=== PATIENT | female | born 1990 | race Caucasian/White ===

== ENCOUNTER → 2019-01-16 | Outpatient (CLI) | payer OTHER, SELFPAY ==
[2019-01-16 09:03] VITALS: BMI 26.2
[2019-01-16 18:18] LABS: Chlamydia Trachomatis by PCR Negative (Negative); Neisserai gonorrhoeae by PCR Negative (Negative); Probe Check PASS; Sample Adequacy Control PASS; Specimen Processing Control PASS
[2019-01-19 12:42] LABS: HPV APTIMA, High Risk Negative (Negative)
== END | disposition home or self-care (01) ==
LOC: LABSPEC 13:05
PROVIDERS: Family Provider Family Medicine; PCP Family Medicine; Referring Provider Obstetrics & Gynecology; Visit Provider Obstetrics & Gynecology
DX: Z34.80 Encounter for supervision of other normal pregnancy, unspecified trimester (principal)
CPT/HCPCS: 87077; 87086; 87088; 87186; 87491; 87591; 87624; 88175; G0145

== ENCOUNTER → 2019-02-13 | Outpatient (CLI) | payer OTHER, SELFPAY ==
[2019-02-13 16:17] VITALS: BMI 26.2
[2019-02-13 17:14] LABS: Absolute Lymphocyte Count 2.48 X10^3/uL (0.83-4.51); Absolute Neutrophil Count 6.8 X10^3/uL (2.0-7.7); Basophil# 0.03 X10^3/uL; Basophil% 0.3 % (0-1); Eosinophil# 0.23 X10^3/uL; Eosinophils% 2.3 % (0-5); Hematocrit 36.1 % (37-47); Hemoglobin 12.2 g/dL (12.0-15.0); Lymphocyte # 2.48 X10^3/ul (4.0); Lymphocyte % 24.5 % (19-41); Mean Corp Hgb Conc 33.8 g/dL (32-36); Mean Corpuscular Hgb 30.9 pg (27.0-32.0); Mean Corpuscular Volume 91.4 fL (81-99); Mean Platelet Vol. 11.8 fl (6.2-12.0); Monocyte# 0.52 X10^3/uL; Monocyte% 5.1 % (0-10); NRBC Flagged by Analyzer 0 % (0-5); Neutrophil # 6.82 X10^3/uL (2.7-7.7); Neutrophil % 67.4 % (47-70); POSITIVE MORPHOLOGY YES; Platelet Count 219 K/mm3 (150-450); RBC Distribution Width CV 12.3 % (11.6-14.6); RBC Distribution Width SD 40.9 fl (35.1-43.9); Red Blood Count 3.95 M/mm3 (4.2-5.4); White Blood Count 10.1 K/mm3 (4.4-11.0)
[2019-02-13 17:26] LABS: Differential Indicated SCAN CRITERIA MET
[2019-02-13 17:52] LABS: Differential Comment SCANNED
[2019-02-13 18:36] LABS: HIV - WCH Non-Reactive (Nonreactive); Rubella IgG 33.6 IU/mL
[2019-02-16 01:38] LABS: Rapid Plasmin Reagin (RPR) NONREACTIVE (NONREACTIVE)
== END | disposition home or self-care (01) ==
LOC: LAB 16:46
PROVIDERS: Family Provider Family Medicine; PCP Family Medicine; Referring Provider Obstetrics & Gynecology; Visit Provider Obstetrics & Gynecology
DX: Z34.81 Encounter for supervision of other normal pregnancy, first trimester (principal)
CPT/HCPCS: 36415; 85025; 86592; 86703; 86762; 86850; 86900; 86901

== ENCOUNTER → 2019-06-01 14:42 | Outpatient (CLI) | payer OTHER, SELFPAY ==
[2019-06-01 14:34] VITALS: BMI 26.2
[2019-06-01 16:25] LABS: Absolute Lymphocyte Count 2.14 X10^3/uL (0.83-4.51); Absolute Neutrophil Count 9.2 X10^3/uL (2.0-7.7); Basophil# 0.02 X10^3/uL; Basophil% 0.2 % (0-1); Eosinophil# 0.07 X10^3/uL; Eosinophils% 0.6 % (0-5); Hematocrit 32.6 % (37-47); Hemoglobin 10.8 g/dL (12.0-15.0); Lymphocyte # 2.14 X10^3/ul (4.0); Lymphocyte % 17.7 % (19-41); Mean Corp Hgb Conc 33.1 g/dL (32-36); Mean Corpuscular Hgb 30.3 pg (27.0-32.0); Mean Corpuscular Volume 91.6 fL (81-99); Mean Platelet Vol. 12.5 fl (6.2-12.0); Monocyte# 0.64 X10^3/uL; Monocyte% 5.3 % (0-10); NRBC Flagged by Analyzer 0 % (0-5); Neutrophil # 9.16 X10^3/uL (2.7-7.7); Neutrophil % 75.5 % (47-70); Platelet Count 196 K/mm3 (150-450); RBC Distribution Width CV 12.6 % (11.6-14.6); Red Blood Count 3.56 M/mm3 (4.2-5.4); White Blood Count 12.1 K/mm3 (4.4-11.0)
[2019-06-01 16:48] LABS: Glucose Challenge Gest 1H 50g 115 mg/dL (70-140)
== END ==
PROVIDERS: Family Provider Family Medicine; PCP Family Medicine; Referring Provider Obstetrics & Gynecology; Visit Provider Obstetrics & Gynecology
DX: Z34.93 Encounter for supervision of normal pregnancy, unspecified, third trimester (principal); Z3A.28 28 weeks gestation of pregnancy
CPT/HCPCS: 36415; 82950; 85025; 86850; 86900; 86901

== ENCOUNTER → 2019-06-12 16:14 | Outpatient (CLI) | payer OTHER, SELFPAY ==
[2019-06-12 16:01] VITALS: BMI 26.2
[2019-06-13 08:58] LABS: Hepatitis B Surface Antigen Non-Reactive (Nonreactive)
== END ==
PROVIDERS: PCP Family Medicine; Referring Provider Obstetrics & Gynecology; Visit Provider Obstetrics & Gynecology
DX: Z34.90 Encounter for supervision of normal pregnancy, unspecified, unspecified trimester (principal)
CPT/HCPCS: 36415; 87340

== ENCOUNTER 2019-08-16 09:25 | Inpatient (IN) | payer OTHER, SELFPAY ==
[2019-06-01 14:34] VITALS: BMI 26.2
[2019-08-09 16:00] VITALS: BMI 31.0
[2019-08-16] VITALS (20 sets, daily range): BP systolic 99–112; BP diastolic 45–71; PULSE 51–80; RESP 16–18; TEMP 36.2–37.6; O2SAT 95–100; BMI 31.4
[2019-08-16] MEDS: Lactated Ringers 1,000 ML 999 ML IV (09:55)
[2019-08-16 10:14] LABS: Absolute Lymphocyte Count 1.74 X10^3/uL (0.83-4.51); Absolute Neutrophil Count 8.3 X10^3/uL (2.0-7.7); Basophil# 0.03 X10^3/uL; Basophil% 0.3 % (0-1); Eosinophil# 0.12 X10^3/uL; Eosinophils% 1.1 % (0-5); Hematocrit 34.1 % (37-47); Hemoglobin 11.4 g/dL (12.0-15.0); Lymphocyte # 1.74 X10^3/ul (4.0); Lymphocyte % 15.9 % (19-41); Mean Corp Hgb Conc 33.4 g/dL (32-36); Mean Corpuscular Volume 89.7 fL (81-99); Mean Platelet Vol. 12.8 fl (6.2-12.0); Monocyte# 0.63 X10^3/uL; Monocyte% 5.8 % (0-10); NRBC Flagged by Analyzer 0 % (0-5); Neutrophil # 8.33 X10^3/uL (2.7-7.7); Neutrophil % 76.2 % (47-70); Platelet Count 176 K/mm3 (150-450); RBC Distribution Width CV 13.5 % (11.6-14.6); RBC Distribution Width SD 44.4 fl (35.1-43.9); White Blood Count 10.9 K/mm3 (4.4-11.0)
[2019-08-16] MEDS: Sodium Citrate/Citric Acid 30 ML UDC PO (10:26)
[2019-08-16] MEDS: Oxytocin 30 units/NS 500 ml 30 UNITS/500 ML IV.SOLN 167 UNITS IV (11:40)
--- NOTE | 2019-08-16 11:42 | HP.PCM_ITS ---
- Problem List (1) Active labor at term Status: Acute (2) Rh negative status during Status: Acute Qualifiers: Comment: rhogam given at 28 wk, prn with bleeding (3) Positive GBS test Status: Acute Comment: pcn in labor (4) Status: Acute Qualifiers: Comment: Declines carrier. declines AFP. genetic low risk. Normal anatomy (5) Supervision of other normal Status: Acute Comment: PRR MILAGROS 08/24/19 boy lizzeth PC: Keo Spouse: Baltazar (6) H/O section Status: Acute Comment: 10/2016 CPD, plan RLTCS shedule 08/20 @ 730 History Date of Admission: 08/16/19 History of this : This is a 29 year-old, , at 38 weeks gestational age presents in active labor desires RLTCS.. Medical History: Medical History (Last Reviewed 08/09/19 @ 15:59 by Ivy Abel) No significant past medical history Surgical History: Surgical History (Last Reviewed 08/09/19 @ 15:59 by Ivy Abel) H/O section (Acute) Z98.891 10/2016 CPD, plan RLTCS shedule 08/20 @ 730 H/O wisdom tooth extraction K08.409 Allergies amoxicillin [From Augmentin] Allergy (Verified 08/09/19 16:00) Hives clavulanic acid [From Augmentin] Allergy (Verified 08/09/19 16:00) Hives Home Medications: Home Medications vitamin no.76-iron,carbonyl 29 mg iron-folic acid 1 mg tablet 1 tab PO DAILY 01/16/19 Smoking Status: Never smoker Alcohol: None Number of Fetus(es): 1 NST - FHR Rate Baby A Baseline: 140 Variability:: Moderate Accelerations:: 15 x 15 Decelerations:: None NST Reactive:: Yes FHR Category:: Category I Uterine Activity:: q 2-3 History Past Pregnancies: Past Pregnancies Pregancy History 2 Elective abortions Hx Para 1 Spontaneous abortions Hx # Term Pregnancies Ectopic pregnancies Hx # Pregnancies Multiple births # of living children 1 Past Pregnancies Del. Date Name GA/Weeks Outcome Route Bth Weight [facility] Keo 40 live - full term 8.3lbs [facility] [place] [facility] Goncalves Baltazar Delivery Date: 11/02/16 On 01/16/19 @ 09:15 Claudia Freitas Baby was turned unable to descend, pushed for 3 hours. Maternal fatigue. Labs: Mom's Problem List Problem Status Onset Code Active labor at term Acute Mom's Labs & Results 08/16/19 08/16/19 09:55 09:55 WBC 10.9 RBC 3.80 L Hgb 11.4 L Hct 34.1 L MCV 89.7 MCH 30.0 MCHC 33.4 RDW Std Deviation 44.4 H RDW Coeff of Nathaanel 13.5 Plt Count 176 MPV 12.8 H Immature Gran % (Auto) 0.700 Neut % (Auto) 76.2 H Lymph % (Auto) 15.9 L [place] % (Auto) 5.8 Eos % (Auto) 1.1 Baso % (Auto) 0.3 Absolute Neuts (auto) 8.3 H Absolute Lymphs (auto) 1.74 Nucleated RBC % 0 Blood Type A NEGATIVE Antibody Screen NEGATIVE Course Did the patient receive Yes care? Labs Blood Type: A RH: NEGATIVE RPR/VDRL/Syphilis Nonreactive Rubella status Immune HbSAg Negative Date Done: 06/12/19 Chlamydia Negative Gonorrhea Negative HIV/AIDS Non-Reactive Group B Strep: Positive Current Obstetrical History Gestational Diabetes No Incompetent Cervix No Infertility No IUGR No Macrosomia No Hypertension/Pre-eclampsia No Placenta Previa/Abruption No PTL/PROM No Uterine anomaly No Oligohydramnios No Polyhydramnios No Multiple gestation No Past Medical History Asthma No Diabetes No Hypertension No Heart disease No Mitral valve prolapse No Neurologic/Seizure disorder/ No Migraines Kidney disease No Liver disease No Varicosities No Clotting disorders/Hx of DVT No Thyroid Dysfunction No Other medical diseases No Psychiatric disorders No Major trauma No Abnormal PAP smear No Sleep apnea No Mammogram in the last 2 years No Social History Marital Status: Alleged father Baltazar Hx Smoking No Smoking Status Never smoker Expected Infant Delivery Method: Spontaneous Vaginal Review of Systems Constitutional: Denies: Fever, Malaise Eyes: Denies: Blurred vision, Vision Change HEENT: Denies: Head Aches, Visual Changes Cardiovascular: Denies: Chest Pain, Palpitations Respiratory: Denies: Cough, Shortness of Breath, Wheezing Gastrointestinal: Denies: Abdominal Pain, Diarrhea, Nausea, Vomiting Genitourinary: Denies: Dysuria, Hematuria Musculoskeletal: Denies: Joint Pain, Muscle pain Skin: Denies: Lesions, Rash Neurological: Denies: Blurred vision, Focal weakness, Headaches Psychiatric: Denies: Anxiety, Depression Endocrine: Denies: Heat/ Cold Intolerance Hematologic/ Lymphatic: Denies: Easy Bruising, Easy Bleeding Physical Exam Vitals: Vital Signs Temp Pulse BP Pulse Ox 98.5 F 72 112/67 98 08/16/19 09:28 08/16/19 09:38 08/16/19 09:38 08/16/19 09:28 General: Alert, Cooperative, No apparent distress HEENT: Atraumatic, Normocephalic. Negative for: Thyromegaly, Lymphadenopathy Cardiovascular: Regular rate Lungs: Normal air movement Abdomen: Soft, Non Tender, Gravid Neurological: Deep Tendon Reflexes 2+/4 and Symmetrical, Neuro grossly intact. Negative for: Clonus [employer]: Normal external genitalia. Negative for: Vulvar lesions Estimated gestational size: Appropriate for gestational size Presentation: Cephalic Assessment/Plan All Active Problems (Last Reviewed 08/09/19 @ 15:59 by Ivy Abel) Active labor at term (Acute) Rh negative status during (Acute) Positive GBS test (Acute) (Acute) Supervision of other normal (Acute) H/O section (Acute) This is a 29 year-old, , at 38 weeks gestational age presents IAL desires RLTCS plan RLTCS
--- NOTE | 2019-08-16 11:52 | OP.PCM_ITS ---
Problem List (1) Active labor at term Status: Acute (2) Rh negative status during Status: Acute Qualifiers: Comment: rhogam given at 28 wk, prn with bleeding (3) Positive GBS test Status: Acute Comment: pcn in labor (4) Status: Acute Qualifiers: Comment: Declines carrier. declines AFP. genetic low risk. Normal anatomy (5) Supervision of other normal Status: Acute Comment: PRR MILAGROS 08/24/19 boy lizzeth PC: Keo Spouse: Baltazar (6) H/O section Status: Acute Comment: 10/2016 CPD, plan RLTCS shedule 08/20 @ 730 Delivery Classification: GENA Final MILAGROS: 08/24/19 Gestational age: 38 Weeks and 6 Days galley cook: Halina Chan Type of Anesthesia:: Spinal Special Medications: none Implants Used: none Date of Procedure: 08/16/19 Pre-Operative Diagnosis: active labor Post-Operative Diagnosis: same Indications for : Repeat Elective Description of Procedure: Spinal anesthesia was placed without difficulty. Adams catheter was placed. The patient was placed in the dorsal supine position with leftward tilt. Patient was prepped and draped in the normal sterile fashion. Pfannenstiel skin incision was made with the scalpel and carried through to the underlying layer of fascia with the scalpel. Fascia was nicked in the midline and the incision extended laterally. The rectus bellies were dissected off superiorly and inferiorly with out complication both sharply and bluntly. The peritoneum was entered digitally. The incision was stretched and a low transverse uterine incision was made with the scalpel. The infant's head was delivered atraumatically followed by the anterior and posterior shoulders without complication the rest of the delivered. The cord was clamped and cut and the infant was handed off to awaiting nurse. The placenta was delivered spon taneously immediately following and was noted to be intact and have a three- vessel cord. The uterus was exteriorized cleared of all clots and debris, and the incision was closed in a double layer closure using #1 Monocryl. The ovaries and fallopian tubes were noted to be within normal limits. The uterus was returned to the maternal abdomen and gutters were cleared of all clots and debris. The peritoneum was closed with 3-0 Monocryl in a running fashion. Gloves were changed prior to fascial closure. Fascia was closed with 0 PDS in a running fashion. Subcutaneous tissue was copiously irrigated and the skin was closed with 3-0 Monocryl in a subcuticular fashion. Mepilex dressing was applied without complication. Patient was taken to recovery in stable condition. It was discussed with the patient that based on the clinical information obtained during this encounter, combined with her history, at this time I would recommend cesareans for future deliveries if further pregnancies are desired. Amniotic Membrane Rupture Type: Artificial Amniotic Fluid Description: Clear Placenta Disposition: [facility] Cord Entanglement: None Nuchal Cord Compression: With compression Esitmated Blood Loss (ml): 400 Infant Gender: Male Delayed cord clamping: Yes Antibiotic Given: Ancef 2 grams IV x1 Complications: None - Admit VTE Documentation VTE Present on Admission: No VTE Mechan Device Prophylaxis: SCD's Multi Select Codes - Urinary/Genital Urinary/Genital CPT Codes: 36678 Delivery [facility]
[2019-08-16] MEDS: Lactated Ringers 1,000 ML 100 ML IV (14:34)
[2019-08-16] MEDS: Ketorolac 30 MG/ML Syringe IV ×2 (17:33→23:24)
[2019-08-16] MEDS: 0.9% Saline Lock 10 ML Syringe IV (23:25)
[2019-08-17 05:10] VITALS: BP 112/62; PULSE 70; RESP 17; TEMP 36.7
[2019-08-17] MEDS: 0.9% Saline Lock 10 ML Syringe IV ×3 (05:11→18:19)
[2019-08-17] MEDS: Ketorolac 30 MG/ML Syringe IV ×3 (05:11→18:18)
[2019-08-17 05:36] LABS: Hematocrit 30.6 % (37-47); Hemoglobin 9.8 g/dL (12.0-15.0); Mean Corpuscular Hgb 29.7 pg (27.0-32.0); Mean Corpuscular Volume 92.7 fL (81-99); Mean Platelet Vol. 12.2 fl (6.2-12.0); Platelet Count 165 K/mm3 (150-450); RBC Distribution Width CV 13.8 % (11.6-14.6); RBC Distribution Width SD 46.8 fl (35.1-43.9); White Blood Count 12.6 K/mm3 (4.4-11.0)
--- NOTE | 2019-08-17 07:56 | DCINST_ITS ---
Discharge Diet: No Restrictions Discharge Activity: May Not Drive - for 2 weeks, May not drive while taking narcotic pain medications., May Shower, May Take a Tub Bath - in 7 days May resume sexual activity in: 4-6 weeks Lifting Restrictions: 20 pounds Additional Activity Instructions:: Nothing in the vagina for 4-6 weeks. You may return to work/school in 6 weeks. Call your doctor if your incision/area has: Continuous Slow Oozing, Sudden Increased Bleeding, Increased Pain/ Swelling, Increased Redness, Foul Smelling Discharge Call your doctor if you observe: Fever of 101 or Higher, Using more than one pad per hour - for 2 hours Suture Line Care: Avoid Pulling/Pushing, Avoid Pinching/Bending Cleanse incision/area with: Keep Dressing Clean & Dry Additional Instructions: If you experience any of the following, contact your healthcare provider. * Bleeding that soaks a pad every hour for 2 hours * Fever 100.4 or higher * Unrelieved incision or abdominal pain * Swelling, redness, discharge or bleeding from your incision or episiotomy site * Your incision begins to separate * Problems urinating (including inability to urinate or burning while urinating). * Visual changes * Severe headache * Flu-like symptoms * Pain or redness in one of both of your breasts * Pain, warmth, tenderness or swelling in your legs, especially the calf area * Frequent nausea and vomiting * Symptoms of depression or anxiety If you experience any of the following, call 911 or go to the nearest Emergency Room. * Chest pain * Problems breathing * Seizure activity * Partial or complete paralysis of a body part, slurred speech, weakness or drooping of the face, or a sudden inability to walk or hold your balance Allergies/Adverse Reactions: Allergies amoxicillin [From Augmentin] Allergy (Verified 08/09/19 16:00) Hives clavulanic acid [From Augmentin] Allergy (Verified 08/09/19 16:00) Hives Medications to take at Discharge vitamin no.76-iron,carbonyl 29 mg iron-folic acid 1 mg tablet 1 tab PO DAILY 01/16/19 Naproxen [Naprosyn] 250 - 500 mg PO Q8H PRN PRN #30 tab 08/17/19 Oxycodone HCl/Acetaminophen [Percocet 5-325] 1 - 2 tablet PO Q6H PRN PRN 7 Days #15 tablet 08/17/19 The following prescriptions were given: Naproxen [Naprosyn] 250 - 500 mg PO Q8H PRN PRN #30 tab PRN Reason: MILD PAIN Transmission Status: Pending to [facility] Oxycodone HCl/Acetaminophen [Percocet 5-325] 1 - 2 tablet PO Q6H PRN PRN 7 Days #15 tablet PRN Reason: Pain Transmission Status: Sent to [facility] Follow-Up: Call to make an appointment with your doctor for an incision check in 1-2 weeks. You will also need a 6 week post- follow up appointment. Test results from this visit will be discussed in further detail at your follow- up appointment, if applicable. Please Follow Up With: nAna Billingsley MD - Call to make an appointment for an incision check in 1-2 [phone] When: You will need a post- check in 6 weeks. Primary Care Physician: Ramirez Post MD [Primary Care Provider] -
--- NOTE | 2019-08-17 07:56 | PCM.PN.OB ---
Patient Problems: Active and Suspected Problems (Last Reviewed 08/09/19 @ 15:59 by Ivy Abel) Active labor at term (Acute) Subjective: doing well no complaints pain controlled no CP SOB N V ambulating well tolerating po lochia moderate, going well - Physical Exam Vitals/I&O's: Vital Signs Temp Pulse Resp BP Pulse Ox 98.0 F 70 17 112/62 99 08/17/19 05:10 08/17/19 05:10 08/17/19 05:10 08/17/19 05:10 08/16/19 23:15 Oxygen Delivery Method Room Air Weight: 212 lb 9.6 oz Body Mass Index (BMI) 31.4 Intake and Output for Last 24 Hours 08/15/19 08/16/19 08/17/19 23:59 23:59 23:59 Intake Total 2631.00 / 2631.00 Output Total 300 / 300 Balance 2331.00 / 2331.00 General: Alert, Oriented x3 Laboratory Results 08/16/19 09:55: WBC 10.9, RBC 3.80 L, Hgb 11.4 L, Hct 34.1 L, MCV 89.7, MCH 30.0, MCHC 33.4, RDW Std Deviation 44.4 H, RDW Coeff of Nathanael 13.5, Plt Count 176, MPV 12.8 H, Immature Gran % (Auto) 0.700, Neut % (Auto) 76.2 H, Lymph % (Auto) 15.9 L, [place] % (Auto) 5.8, Eos % (Auto) 1.1, Baso % (Auto) 0.3, Absolute Neuts (auto) 8.3 H, Absolute Lymphs (auto) 1.74, Nucleated RBC % 0 08/16/19 09:55: Blood Type A NEGATIVE, Antibody Screen NEGATIVE 08/16/19 13:00: Screen NEGATIVE, Baby's Blood Type A POSITIVE, Baby's MARY NEGATIVE 08/17/19 05:30: WBC 12.6 H, RBC 3.30 L, Hgb 9.8 L, Hct 30.6 L, MCV 92.7, MCH 29.7, MCHC 32.0, RDW Std Deviation 46.8 H, RDW Coeff of Nathanael 13.8, Plt Count 165, MPV 12.2 H Current Medications Acetaminophen (Tylenol) 1,000 mg PO Q8H PRN PRN Reason: Pain Score 1-3/10 Bisacodyl (Dulcolax) 10 mg RECTAL UD PRN PRN Reason: If no BM Hydrocortisone (Hytone) 1 applic TOPICAL TID PRN PRN; Protocol PRN Reason: Discomfort Naloxone HCl 4 mg/ Dextrose 504 mls @ 0 mls/hr IV .Q0M PRN; Protocol PRN Reason: Respiratory depression Ketorolac Tromethamine (Toradol (Bkc)) 30 mg IV Q6H ERICA Stop: 08/18/19 11:31 Last Admin: 08/17/19 05:11 Dose: 30 mg Documented by: Methylergonovine Maleate (Methergine) 0.2 mg IM X1 PRN PRN Reason: Uterine Atony Naloxone HCl (Narcan) 0.02 mg IV Q1M PRN PRN Reason: RR <10 and pt unresponsive Naproxen (Naprosyn) 250 - 500 mg PO Q8H PRN PRN PRN Reason: Pain Score 1-3/10 Ondansetron HCl (Zofran) 4 mg IV Q4H PRN PRN PRN Reason: Nausea Oxycodone HCl (Oxyir) 5 - 10 mg PO Q4H PRN PRN PRN Reason: Pain Score 4-10/10 Prochlorperazine Edisylate (Compazine Iv) 10 mg IV Q6H PRN PRN PRN Reason: NAUSEA Senna/Docusate Sodium (Senokot-S, Geovanna-Colace) 0 tablet PO DAILY PRN PRN Reason: Constipation Simethicone (Mylicon) 80 mg PO PCHS PRN PRN Reason: Indigestion/stomach pain Sodium Chloride () 5 - 15 ml IV UD PRN PRN Reason: SALINE FLUSH Last Admin: 08/17/19 05:11 Dose: 10 ml Documented by: Medical Necessity - Tobacco Use Smoking Status: Never smoker Assessment/Plan All Active Problems (Last Reviewed 08/09/19 @ 15:59 by Ivy Abel) Active labor at term (Acute) Rh negative status during (Acute) Positive GBS test (Acute) (Acute) Supervision of other normal (Acute) H/O section (Acute) s/p LTCS PPD # 1 1. routine post care 2. breast feeding- support given 3. rh negative 4. rubella immune
[2019-08-17 08:20] VITALS: BP 104/56; PULSE 64; RESP 18; TEMP 36.8
[2019-08-17] MEDS: Senna/Docusate Sodium 1 Tablet PO (11:43)
[2019-08-17 14:00] VITALS: BP 116/62; PULSE 63; RESP 16; TEMP 36.5
[2019-08-17 21:30] VITALS: BP 112/51; PULSE 75; RESP 18; TEMP 36.4; O2SAT 97
[2019-08-18] MEDS: 0.9% Saline Lock 10 ML Syringe IV ×3 (00:01→12:21)
[2019-08-18] MEDS: Ketorolac 30 MG/ML Syringe IV ×3 (00:01→12:20)
[2019-08-18 02:30] VITALS: BP 111/61; PULSE 62; RESP 16; TEMP 36.9
--- NOTE | 2019-08-18 06:34 | PCM.PN.OB ---
Patient Problems: Active and Suspected Problems (Last Reviewed 08/09/19 @ 15:59 by Ivy Abel) Active labor at term (Acute) Subjective: doing well no complaints pain controlled no CP SOB N V ambulating well tolerating po lochia moderate, going well - Physical Exam Vitals/I&O's: Vital Signs Temp Pulse Resp BP Pulse Ox 98.5 F 62 16 111/61 97 08/18/19 02:30 08/18/19 02:30 08/18/19 02:30 08/18/19 02:30 08/17/19 21:30 Oxygen Delivery Method Room Air Weight: 212 lb 9.6 oz Body Mass Index (BMI) 31.4 Intake and Output for Last 24 Hours 08/16/19 08/17/19 08/18/19 23:59 23:59 23:59 Intake Total 2631.00 / 2631.00 Output Total 300 / 300 450 / 450 Balance 2331.00 / 2331.00 -450 / -450 General: Alert, Oriented x3 Current Medications Acetaminophen (Tylenol) 1,000 mg PO Q8H PRN PRN Reason: Pain Score 1-3/10 Bisacodyl (Dulcolax) 10 mg RECTAL UD PRN PRN Reason: If no BM Hydrocortisone (Hytone) 1 applic TOPICAL TID PRN PRN; Protocol PRN Reason: Discomfort Naloxone HCl 4 mg/ Dextrose 504 mls @ 0 mls/hr IV .Q0M PRN; Protocol PRN Reason: Respiratory depression Ketorolac Tromethamine (Toradol (Bkc)) 30 mg IV Q6H ERICA Stop: 08/18/19 11:31 Last Admin: 08/18/19 06:02 Dose: 30 mg Documented by: Methylergonovine Maleate (Methergine) 0.2 mg IM X1 PRN PRN Reason: Uterine Atony Naloxone HCl (Narcan) 0.02 mg IV Q1M PRN PRN Reason: RR <10 and pt unresponsive Naproxen (Naprosyn) 250 - 500 mg PO Q8H PRN PRN PRN Reason: Pain Score 1-3/10 Ondansetron HCl (Zofran) 4 mg IV Q4H PRN PRN PRN Reason: Nausea Oxycodone HCl (Oxyir) 5 - 10 mg PO Q4H PRN PRN PRN Reason: Pain Score 4-10/10 Prochlorperazine Edisylate (Compazine Iv) 10 mg IV Q6H PRN PRN PRN Reason: NAUSEA Senna/Docusate Sodium (Senokot-S, Geovanna-Colace) 0 tablet PO DAILY PRN PRN Reason: Constipation Last Admin: 08/17/19 11:43 Dose: 2 tablet Documented by: Simethicone (Mylicon) 80 mg PO PCHS PRN PRN Reason: Indigestion/stomach pain Last Admin: 08/17/19 11:43 Dose: 80 mg Documented by: Sodium Chloride () 5 - 15 ml IV UD PRN PRN Reason: SALINE FLUSH Last Admin: 08/18/19 06:03 Dose: 5 ml Documented by: Medical Necessity - Tobacco Use Smoking Status: Never smoker Assessment/Plan All Active Problems (Last Reviewed 08/09/19 @ 15:59 by Ivy Abel) Active labor at term (Acute) Rh negative status during (Acute) Positive GBS test (Acute) (Acute) Supervision of other normal (Acute) H/O section (Acute) s/p LTCS PPD # 2 1. routine post care 2. breast feeding- support given 3. rh negative 4. rubella immune
[2019-08-18 10:00] VITALS: BP 126/68; PULSE 76; RESP 16; TEMP 37.6
[2019-08-18] MEDS: Senna/Docusate Sodium 1 Tablet PO (12:21)
[2019-08-18 14:00] VITALS: BP 122/71; PULSE 81; RESP 12; TEMP 36.8
--- NOTE | 2019-08-18 16:15 | NURSING ---
1500 Pt and state they want to go home this afternoon. Pt states she feels able to care for herself and her baby.
== END 2019-08-18 16:50 | disposition home or self-care (01) | DRG 787 ==
PROVIDERS: Admitting Provider Obstetrics & Gynecology; PCP Family Medicine; Referring Provider Obstetrics & Gynecology; Visit Provider Obstetrics & Gynecology
DX: O34.211 Maternal care for low transverse scar from previous cesarean delivery (principal); O98.82 Other maternal infectious and parasitic diseases complicating childbirth; O69.1XX0 Labor and delivery complicated by cord around neck, with compression, not applicable or unspecified; B95.1 Streptococcus, group B, as the cause of diseases classified elsewhere; Z3A.38 38 weeks gestation of pregnancy; Z37.0 Single live birth
CPT/HCPCS: 59025; 59050; 85025; 85027; 85461; 86850; 86900; 86901; 90384; 99218; J7120; A4216; G0378; J2790

== ENCOUNTER → 2020-12-22 16:03 | Outpatient (CLI) | payer OTHER, SELFPAY ==
[2020-12-22 14:40] VITALS: BMI 31.4
[2020-12-22 17:44] LABS: Amphetamine Urine VISTA NEGATIVE (<1000 ng/mL); Barbiturate Urine VISTA NEGATIVE (< 200 ng/mL); Benzodiazepine Urine VISTA NEGATIVE (< 200 ng/mL); Cocaine Urine VISTA NEGATIVE (< 300 ng/mL); Ecstacy Urine VISTA NEGATIVE (< 500 ng/mL); Methadone Urine VISTA NEGATIVE (< 300 ng/mL); PCP Urine VISTA NEGATIVE (< 25 ng/mL); THC Urine VISTA NEGATIVE (< 50 ng/mL); Vista UDS pH Range 6
[2020-12-22 17:45] LABS: Absolute Lymphocyte Count 2.23 X10^3/uL (0.83-4.51); Absolute Neutrophil Count 5.8 X10^3/uL (2.0-7.7); Basophil# 0.04 X10^3/uL; Basophil% 0.5 % (0-1); Eosinophil# 0.07 X10^3/uL; Eosinophils% 0.8 % (0-5); Hematocrit 37.2 % (37-47); Hemoglobin 12.2 g/dL (12.0-15.0); Lymphocyte # 2.23 X10^3/ul (0.83-4.51); Lymphocyte % 25.7 % (19-41); Mean Corp Hgb Conc 32.8 g/dL (32-36); Mean Corpuscular Hgb 30.8 pg (27.0-32.0); Mean Corpuscular Volume 93.9 fL (81-99); Mean Platelet Vol. 11.9 fl (6.2-12.0); Monocyte# 0.51 X10^3/uL; Monocyte% 5.9 % (0-10); NRBC Flagged by Analyzer 0 % (0-5); Neutrophil # 5.79 X10^3/uL (2.7-7.7); Neutrophil % 66.6 % (47-70); Platelet Count 193 K/mm3 (150-450); RBC Distribution Width CV 12.4 % (11.6-14.6); Red Blood Count 3.96 M/mm3 (4.2-5.4); White Blood Count 8.7 K/mm3 (4.4-11.0)
[2020-12-22 18:06] LABS: Glucose Challenge Gest 1H 50g 65 mg/dL (70-140)
[2020-12-22 18:28] LABS: NATERA MAILED SPECIMEN
[2020-12-23 09:09] LABS: HIV - WCH Non-Reactive (Nonreactive); Hepatitis B Surface Antigen Non-Reactive (Nonreactive); Hepatitis C Antibody Non-Reactive (Nonreactive); Rubella IgG Reactive (Nonreactive); Syphilis Antibodies Non-reactive
[2020-12-25 03:07] LABS: Chlamydia By Nucleic Acid AMP Negative (Negative)
[2020-12-25 07:36] LABS: Gonococcus By Nucleic Acid AMP Negative (Negative)
== END ==
PROVIDERS: PCP Family Medicine; Referring Provider Obstetrics & Gynecology; Visit Provider Obstetrics & Gynecology
DX: O99.210 Obesity complicating pregnancy, unspecified trimester (principal); Z3A.00 Weeks of gestation of pregnancy not specified
CPT/HCPCS: 36415; 80307; 82950; 85025; 86703; 86762; 86780; 86803; 86850; 86900; 86901; 87077; 87086; 87088; 87186; 87340; 87491; 87591

== ENCOUNTER → 2021-04-24 15:53 | Outpatient (CLI) | payer OTHER, SELFPAY ==
[2021-04-24 17:20] LABS: Absolute Lymphocyte Count 1.85 X10^3/uL (0.83-4.51); Absolute Neutrophil Count 7.5 X10^3/uL (2.0-7.7); Basophil# 0.02 X10^3/uL; Basophil% 0.2 % (0-1); Eosinophil# 0.06 X10^3/uL; Eosinophils% 0.6 % (0-5); Hematocrit 31.1 % (37-47); Hemoglobin 10.2 g/dL (12.0-15.0); Lymphocyte # 1.85 X10^3/ul (0.83-4.51); Lymphocyte % 18.6 % (19-41); Mean Corp Hgb Conc 32.8 g/dL (32-36); Mean Corpuscular Hgb 30.9 pg (27.0-32.0); Mean Corpuscular Volume 94.2 fL (81-99); Mean Platelet Vol. 11.6 fl (6.2-12.0); Monocyte# 0.45 X10^3/uL; Monocyte% 4.5 % (0-10); NRBC Flagged by Analyzer 0 % (0-5); Neutrophil # 7.46 X10^3/uL (2.7-7.7); Neutrophil % 75.3 % (47-70); Platelet Count 176 K/mm3 (150-450); RBC Distribution Width CV 13.2 % (11.6-14.6); RBC Distribution Width SD 45.2 fl (35.1-43.9); White Blood Count 9.9 K/mm3 (4.4-11.0)
[2021-04-24 17:51] LABS: Glucose Challenge Gest 1H 50g 130 mg/dL (70-140)
== END ==
PROVIDERS: PCP Family Medicine; Visit Provider Nurse Practitioner Women's Health
DX: Z34.92 Encounter for supervision of normal pregnancy, unspecified, second trimester (principal); Z3A.23 23 weeks gestation of pregnancy
CPT/HCPCS: 36415; 82950; 85025; 86850; 86900; 86901

== ENCOUNTER 2021-05-26 14:08 | Outpatient (CLI) | payer OTHER, SELFPAY ==
--- NOTE | 2021-05-26 14:11 | US_ITS ---
STUDY: SECOND AND THIRD TRIMESTER OBSTETRICAL ULTRASOUND - LIMITED REASON FOR EXAM: Female, 31 years old growth LMP: 10/09/2020. PRIOR ULTRASOUND: None. TECHNIQUE: Transabdominal TECHNICAL QUALITY: Adequate. FINDINGS: There is a single intrauterine fetus. The fetus is in a cephalic presentation. There is demonstrated cardiac activity with a heart rate of 138 bpm. There is a normal amniotic fluid volume. The largest amniotic fluid pocket measures 4.87 cm. The amniotic fluid index (JIMMY) is 12.39 cm. The placenta is anterior in location and is not low lying. There are Grade 0 placental changes. The cervix measures 3.6 cm in length. BIOMETRY: BPD: 8.05 cm: 32 weeks, 2 days HC: 29.74 cm: 32 weeks, 6 days AC: 31.24 cm: 35 weeks, 1 days FL: 6.39 cm: 33 weeks, 0 days Age by LMP: 32 weeks, 5 days. MILAGROS by LMP: 07/16/2021. age by current US: 33 weeks, 0 days. MILAGROS by current US: 07/14/2021. Estimated weight: 2375 grams, +/- 356 grams, 84 percentile. US/OB Limited With Biometrics IMPRESSION: Single live intrauterine gestation with a mean gestational age of 33 weeks. Electronically Signed: Fritz Guan MD at 14:56 EST , Service support ,
== END 2021-05-26 23:59 | disposition short-term general hospital (02) ==
LOC: OPUS 14:09
PROVIDERS: PCP Family Medicine; Visit Provider Obstetrics & Gynecology
DX: O98.52 Other viral diseases complicating childbirth (principal); U07.1 COVID-19; Z3A.33 33 weeks gestation of pregnancy
CPT/HCPCS: 76816

== ENCOUNTER 2021-06-24 14:30 | Outpatient (CLI) | payer OTHER, SELFPAY ==
--- NOTE | 2021-06-24 14:33 | US_ITS ---
STUDY: SECOND AND THIRD TRIMESTER OBSTETRICAL ULTRASOUND REASON FOR EXAM: Female, 31 years old growth LMP: 10/09/2020. TECHNIQUE: Transabdominal TECHNICAL QUALITY: Adequate. PRIOR ULTRASOUND: Comparison is made with prior study dated 05/26/2021. FINDINGS: There is a single intrauterine fetus. The fetus is in a cephalic presentation. There is demonstrated cardiac activity with a heart rate of 145 bpm. There is a normal amniotic fluid volume. The largest amniotic fluid pocket measures 5.2 cm. The amniotic fluid index (JIMMY) is 9 cm. The placenta is anterior in location and is not low lying. There are Grade 2 placental changes. The adnexal regions are not visualized. BIOMETRY: BPD: 9.0 cm: 36 weeks, 2 days HC: 32.3 cm: 36 weeks, 3 days AC: 25.3 cm: 39 weeks, 1 days FL: 7.32 cm: 37 weeks, 3 days CI: 82% FL/BPD: 81% FL/HC: FL/AC: 21% HC/AC: 0.92 age by current US: 36 weeks, 6 days. MILAGROS by current US: 07/16/2021. Estimated weight: 3477 grams, +/- 522 grams, 89 %. age by prior US: 37 weeks, 1 days. MILAGROS by prior US: 07/14/2021. Age by LMP: 36 weeks, 6 days. MILAGROS by LMP: 07/16/2020. US/OB Limited With Biometrics IMPRESSION: Single life intrauterine gestation with a mean gestational age of 37 weeks and 1 day. The measurements obtained today following within the normal expected range. Electronically Signed: Fritz Guan MD at 15:31 EST ,
== END 2021-06-24 23:59 | disposition short-term general hospital (02) ==
LOC: US 14:31
PROVIDERS: PCP Family Medicine; Visit Provider Obstetrics & Gynecology
DX: O98.519 Other viral diseases complicating pregnancy, unspecified trimester (principal); U07.1 COVID-19
CPT/HCPCS: 76816

== ENCOUNTER 2021-07-14 05:51 | Inpatient (IN) | payer OTHER, SELFPAY ==
[2021-07-14] VITALS (16 sets, daily range): BP systolic 91–129; BP diastolic 43–75; PULSE 51–83; RESP 14–16; TEMP 36.1–37.1; O2SAT 96–100; BMI 32.5
[2021-07-14] MEDS: Lactated Ringers 1,000 ML 999 ML IV (06:15)
[2021-07-14 06:26] LABS: Absolute Lymphocyte Count 2.08 X10^3/uL (0.83-4.51); Absolute Neutrophil Count 6.3 X10^3/uL (2.0-7.7); Basophil# 0.02 X10^3/uL; Basophil% 0.2 % (0-1); Eosinophil# 0.06 X10^3/uL; Eosinophils% 0.7 % (0-5); Hematocrit 33.5 % (37-47); Hemoglobin 11.6 g/dL (12.0-15.0); Lymphocyte # 2.08 X10^3/ul (0.83-4.51); Lymphocyte % 23.4 % (19-41); Mean Corp Hgb Conc 34.6 g/dL (32-36); Mean Corpuscular Volume 92.3 fL (81-99); Mean Platelet Vol. 12.2 fl (6.2-12.0); Monocyte# 0.37 X10^3/uL; Monocyte% 4.2 % (0-10); NRBC Flagged by Analyzer 0 % (0-5); Neutrophil # 6.31 X10^3/uL (2.7-7.7); Neutrophil % 70.8 % (47-70); Platelet Count 159 K/mm3 (150-450); RBC Distribution Width CV 13.4 % (11.6-14.6); RBC Distribution Width SD 45.6 fl (35.1-43.9); Red Blood Count 3.63 M/mm3 (4.2-5.4); White Blood Count 8.9 K/mm3 (4.4-11.0)
[2021-07-14] MEDS: Acetaminophen 500 MG Tablet 1000 MG PO ×3 (06:31→20:55)
[2021-07-14] MEDS: Sodium Citrate/Citric Acid 30 ML UDC PO (07:16)
[2021-07-14] MEDS: Lactated Ringers 1,000 ML 150 ML IV (07:16)
--- NOTE | 2021-07-14 07:28 | HP.PCM_ITS ---
History and Physical Date of Admission: 07/14/21 ntake Visit Reasons: 39 WK OB Chief Complaint: est ob Health Coach Required: No Is patient in pain?: No Allergies amoxicillin [From Augmentin] Allergy (Verified 07/10/21 16:05) Hives clavulanic acid [From Augmentin] Allergy (Verified 07/10/21 16:05) Hives Medications vitamin no.76-iron,carbonyl 29 mg iron-folic acid 1 mg tablet 1 tab PO DAILY 01/16/19 [History Confirmed 07/10/21] Last Menstral Period: 10/09/20 Zika: Zika virus screening: Negative : No PFSH PFSH Medical History GBS (group B streptococcus) UTI complicating Lab test positive for detection of COVID-19 virus No significant past medical history Surgical History H/O section H/O wisdom tooth extraction Family History Mother GERD (gastroesophageal reflux disease) Father Hypertension Depression Social History adopted: No household members: spouse and children housing: house number of children: 2 current occupational status: employed current occupation: [employer] current occupational exposures/hazards: No pets and animals: Yes pets and animals: dog(s) history of recent travel: No sexually active: Yes Smoking Status: Never smoker second hand exposure: No alcohol intake: current alcohol intake frequency: holidays/special occasions only details: not while substance use type: does not use seatbelt use: always do you feel safe at home: Yes additional social history: - [employer]- [employer], life skills to adolescent boys Pregancy History 3 Elective abortions Hx Para 2 Spontaneous abortions Hx # Term Pregnancies Ectopic pregnancies Hx # Pregnancies Multiple births # of living children 2 Past Pregnancies Del. Date Name GA/Weeks Outcome Route Bth Weight Infant Gen Labor Lgth Anesthesia Del Locatn Provider FOB 11/02/16 Keo 40 live - full term 8.3lbs Male 42hours epidural [facility], Too Led[facility] 08/16/19 Joaquim 38 live - full term Male spinal [facility] Delivery Date: 11/02/16 Baby was turned unable to descend, pushed for 3 hours. Maternal fatigue. Claudia Freitas Delivery Date: 08/16/19 REPEAT LOW TRANSVERSE C/S Claudia Freitas HPI 39 WK OB Details: LUIS MANUEL RODRIGUEZ is a 31 year old who presents for routine OB visit. OB Visit MILAGROS Calculator Estimated Delivery Date Method Current WG Current Estimate 07/16/21 LMP (Certain) 39w 1d Expected Delivery Route/Plan RLTCS and BS with SM Specific Issue/Plans Covid status: moderna, pos in . Flu vaccine: will get at school Tdap vaccine:given Rhogam: na LARC form signed: declined movement and labor precautions reviewed. Problem list reviewed and updated with the most current plan of care details and appropriate orders placed. Relevant counseling for the gestational age provided. Continue routine care and follow up unless otherwise noted in visit notes/problem list details Initial Weight: Not Recorded Date EGA Weight BP Urine Prot Glucose FHR FuHt Pres Dilation Effaced St Visit Note 12/22/20 10w 4d 189 lb 126/70 168 GP - CRL 43mm consistent with LMP 01/22/21 15w 0d 190 lb 120/72 Negative Negative 155 GP - no cramping or bleeding. It's a girl!! Anatomy ordered. 02/18/21 18w 6d 194 lb 6 oz 120/62 Negative Negative 150 SM- no vb cramping 03/20/21 23w 1d 200 lb 118/64 Negative Negative 140 Sm- no vb cramping doing well 04/24/21 28w 1d 208 lb 8 oz 116/70 Negative Negative 154 28 JV- no lof ,vaginal bleeding, or dec fm gct and rhogam today 05/05/21 29w 5d 208 lb 2 oz 108/60 Negative Negative 145 31 SM- no vb lof good fm no regular ctx 05/21/21 32w 0d 210 lb 8 oz 110/60 Negative Negative 145 32 SM- no vb lof good fm no regular ctx 06/05/21 34w 1d 211 lb 8 oz 104/64 Negative Negative 145 34 SM- no vb lof good fm no reuglar ctx 06/19/21 36w 1d 216 lb 110/70 Negative Negative 125 36 Cephalic 1 SM- no vb lof good fm no regular ctx gbs collected 06/24/21 36w 6d 214 lb 4 oz 102/60 Negative Negative 155 37 Cephalic 1 50 -4 JV- no lof, vaginal bleeding, or dec fm. GBS in urine. rpt section on 07/15/21 07/02/21 38w 0d 217 lb 128/64 Negative Negative 150 38 Cephalic SM- no vb lof good fm no regular ctx 07/10/21 39w 1d 216 lb 104/60 Negative Negative 140 39 Cephalic 1 Sm- no vb lof good fm no regular ctx ACOG First Trimester First Trimester: Desire for , Alcohol, Tobacco Cessation, I llicit/Recreational Drug/Substance Use, Intimate Partner Violence, Barriers to care, Unstable Housing, Communication Barriers, Environmental/Work Hazards, Anticipated Course of Care, Toxoplasmosis Precations, Use of Any medications, Sexual activity, Exercise, Dental Care, Sauna/Hot tub use, Seat Belt use, Childbirth classes/Hospital facilities, , Travel, Indications for Ultrasound and Screening for Aneuploidy Second Trimester Second Trimester: Signs and Symptoms of Labor, Selecting a care provider, Reproductive Life Planning & Contreception, Care Planning, Tobacco Cessation, Depression/Anxiety and Intimate Partner Violence Third Trimester Third Trimester: Pain Management Plans, Labor support person(s), Immediate Larc, Movement Monitoring and Feeding Yes ; Discussed Trial of Labor after Counseling and Discussed Circumcision preference Diagnostics Diagnostics Diagnostics: Blood Type A NEGATIVE Antibody Screen NEGATIVE Glucose 1 Hr 50 gm 130 mg/dL (70-140) Hgb 10.2 g/dL (12.0-15.0) L Hct 31.1 % (37-47) L Details: HIV: Urine Culture: Sequential Screen: NIPT Screen: ROS Const Reports system reviewed and no additional complaints, except as documented Card Reports system reviewed and no additional complaints, except as documented Resp Reports system reviewed and no additional complaints, except as documented GI Reports system reviewed and no additional complaints, except as documented and Reports nausea Reports system reviewed and no additional complaints, except as documented Musc Reports system reviewed and no additional complaints, except as documented Exam Const General: cooperative, healthy appearing, comfortable and anxious HENCT Head: normal to inspection Nose: external nose normal Face and sinus: normal facial exam Neck Neck: normal visual inspection, full ROM and no lymphadenopathy Thyroid: thyroid normal Chest Chest palpation & inspection: normal inspection of the chest Resp Effort & Inspection: normal respiratory effort GI Inspection: normal to inspection Palpation: soft and other (gravid uterus) Other: infant vertex and appropriate size for gestational age Other: Cervical Exam: Extrem General: pedal edema Results POC Urinalysis 2 Dip (Clinic) Office Urine Glucose Negative Last Edit by Keisha Avina on 07/10/21 16:10 Office Urine Protein Negative Last Edit by Keisha Avina on 07/10/21 16:10 Coding Level of Care Code OB Routine Diagnoses Anemia affecting O99.019 Lab test positive for detection of COVID-19 virus U07.1 GBS (group B streptococcus) UTI complicating O23.40; B95.1 Obesity affecting O99.211 Trimester: first trimester Family history of genetic disease Z84.89 Rh negative state in antepartum period O26.899; Z67.91 Supervision of other normal Z34.80 Z3A.39 Weeks of gestation: 39 weeks H/O section Z98.891 Assessment and Plan Assessment and Plan (1) Anemia affecting : Status: Acute Comment: iron added rpeat cbc in may (2) Lab test positive for detection of COVID-19 virus: Status: Acute Comment: 01/27/21 asa 81mg, growth US 32 & 36 wk (3) GBS (group B streptococcus) UTI complicating : Status: Acute Comment: tx in labor (4) Obesity affecting : Status: Acute Qualifiers: Trimester: first trimester Qualified Code(s): O99.211 - Obesity complicating , first trimester Comment: BMI 31 at NOB- NL GCT, 2/2 nl growth US (5) Family history of genetic disease: Status: Acute Comment: 2nd son Joaquim had surgery for craniosenositosis. (6) Rh negative state in antepartum period: Status: Acute Comment: rhogam 28 wk, pp and prn (7) Supervision of other normal : Status: Acute Comment: PRR MILAGROS 07/16/21 PC: Joaquim Crowley. Spouse: [employer] (8) : Status: Acute Qualifiers: Weeks of gestation: 39 weeks Qualified Code(s): Z3A.39 - 39 weeks gestation of Comment: Prior negative carrier screen. dec afp screen. NIPT- low risk; NL anatomy (9) H/O section: Status: Acute Comment: plans RLTCS w SM 07/14 @ 7:30am Plan Details Other Orders: Orders: POC Urinalysis 2 Dip (Clinic) Today UPDATE- I have seen the patient and performed any clinically relevant updates to the history and physical exam. Anna Billingsley MD
--- NOTE | 2021-07-14 07:46 | OP.PCM_ITS ---
Assessment & Plan (1) H/O section: COMMENT: plans RLTCS w SM 07/14 @ 7:30am (2) : QUALIFIERS: Weeks of gestation: 39 weeks Qualified Code(s): Z3A.39 - 39 weeks gestation of COMMENT: Prior negative carrier screen. dec afp screen. NIPT- low risk; NL anatomy (3) Supervision of other normal : COMMENT: PRR MILAGROS 07/16/21 PC: Joaquim Crowley. Spouse: [employer] (4) Rh negative state in antepartum period: COMMENT: rhogam 28 wk, pp and prn (5) Family history of genetic disease: COMMENT: 2nd son Joaquim had surgery for craniosenositosis. (6) Obesity affecting : QUALIFIERS: Trimester: first trimester Qualified Code(s): O99.211 - Obesity complicating , first trimester COMMENT: BMI 31 at NOB- NL GCT, 2/ nl growth US (7) Lab test positive for detection of COVID-19 virus: COMMENT: 01/27/21 asa 81mg, growth US 32 & 36 wk (8) GBS (group B streptococcus) UTI complicating : COMMENT: tx in labor (9) Anemia affecting : COMMENT: iron added rpeat cbc in may Maternal Data Information MILAGROS Calculator Estimated Delivery Date Method Current WG Current Estimate 07/16/21 LMP (Certain) 39w 5d Final MILAGROS Source: LMP Details Operative Information Date of Procedure: 07/14/21 Pre-Operative Diagnosis: Previous Post-Operative Diagnosis: same Indications for : Repeat Elective Classification: Scheduled Procedure Type: low transverse (and BS) cap coverer #1: Halina Chan Type of Anesthesia: Spinal Special Medications: none Antibiotic Given: Clindamycin 600mg IV x1 and Gentamicin 1.5mg/kg IV x1 Drain: Adams to straight drain Estimated Blood Loss: 500 Fluids Replaced: crystalloid Findings Description of Procedure: Spinal anesthesia was placed without difficulty. Adams catheter was placed. The patient was placed in the dorsal supine position with leftward tilt. Patient was prepped and draped in the normal sterile fashion. Pfannenstiel skin incision was made with the scalpel and carried through to the underlying layer of fascia with the scalpel. Fascia was nicked in the midline and the incision extended laterally. The rectus bellies were dissected off superiorly and inferiorly with out complication both sharply and bluntly. The peritoneum was entered digitally. The incision was stretched and a low transverse uterine incision was made with the scalpel. The infant's head was delivered atraumatically followed by the anterior and posterior shoulders without complication the rest of the delivered. The cord was clamped and cut and the was handed off to awaiting nurse. The placenta was delivered spontaneously immediately following and was noted to be intact and have a three- vessel cord. The uterus was exteriorized cleared of all clots and debris, and the incision was closed in a single layer closure using #1 Monocryl. Patient had desired sterilization and was counseled preoperatively regarding irreversibility and permanency. Therefore bilateral fallopian tubes were elevated and transected across using a LigaSure device starting proximally to distally without complication the entire fallopian tubes were removed. The ovaries and fallopian tubes were noted to be within normal limits. The uterus was returned to the maternal abdomen and gutters were cleared of all clots and debris. The peritoneum was closed with 3-0 Monocryl in a running fashion. Gloves were changed prior to fascial closure. Fascia was closed with 0 PDS in a running fashion. Subcutaneous tissue was copiously irrigated and the skin was closed with 3-0 Monocryl in a subcuticular fashion. Mepilex dressing was applied without complication. Patient was taken to recovery in stable condition. It was discussed with the patient that based on the clinical information obtained during this encounter, combined with her history, at this time I would recommend cesareans for future deliveries if further pregnancies are desired. Amniotic Membrane Rupture Type: Artificial Amniotic Fluid Description: Moderate meconium Placenta Disposition: [facility] Cord Vessel Description: 3 Vessels Cord Entanglement: None Delayed Cord Clamping: Yes Complications Risks of Surgery Discussed w/Patient: Bleeding, Infection, Need for Future C- Sections and Injury to surrounding structure(s) including bowel and bladder Vaginal Delivery Complication Complications: None Admit VTE Documentation VTE Present on Admission: No VTE Mechan Device Prophylaxis: SCD's Multi Select Codes Urinary/Genital Urinary/Genital CPT Codes: 90060 C/S+TL (with bilateral salpingectomy) and 17570 Delivery [facility]
--- NOTE | 2021-07-14 07:56 | FALS_PTH ---
PATIENT: LUIS MANUEL RODRIGUEZ LOC: [facility] U#:[id number] AGE/SX: 31/F ROOM: WP004 RE07/14/[address]: Dr. Anna Billingsley MD : 1990 BED: 1 DIS: 07/16/2021 SPEC #: [id number] RECD: 07/14/21 09:00 STATUS: LYUBOV BEAR #: [id number] SOTERO: 07/14/21 07:[address]: Anna Billingsley DEPT: SURGICAL PATHOLOGY RECD BY: Jenae Limon ENTERED: 07/14/21 09:15 SP TYPE: FALL TUBES OTHR DR: Dr. Ramirez Post MD Tissues: Fallopian tube Procedures: Surgery Specimen Level II HEADER OPERATION: Tubal ligation PRE-OP DIAGNOSIS: Sterilization TISSUE SUBMITTED: Fallopian tubes, suture in left MICROSCOPIC DIAGNOSIS Right fallopian tube, salpingectomy: Complete cross-sections of fallopian tube with no pathologic change. Left fallopian tube, salpingectomy: Complete cross-sections of fallopian tube with no pathologic change. AM:michael 07/15/2021 MICROSCOPIC DESCRIPTION Slides are reviewed. GROSS DESCRIPTION Received in fixative is one container labeled with the patient's name and designated bilateral fallopian tubes, stitch left tube. The specimen consists of bilateral fallopian tubes including fimbrial ends. The right fallopian tube measures 6.5 cm in length and 1 cm in diameter and the left fallopian tube measures 6 cm in length and 0.7 cm in diameter. Sections reveal unremarkable cut surfaces. Forest Engineer sections are submitted in two cassettes as follows: 1 ? right fallopian tube, 2 ? left fallopian tube. / SJ:michael 07/14/2021 TC:4 CPT: 73154 x2
[2021-07-14] MEDS: Oxytocin 30 units/NS 500 ml 30 UNITS/500 ML IV.SOLN 167 UNITS IV (09:00)
[2021-07-14] MEDS: Ketorolac 30 MG/ML Syringe IV ×3 (09:12→20:54)
[2021-07-14] MEDS: 0.9% Saline Lock 10 ML Syringe IV ×2 (09:13→20:55)
[2021-07-14] MEDS: Lactated Ringers 1,000 ML 100 ML IV (09:14)
--- NOTE | 2021-07-14 10:04 | NURSING ---
Ligasure Lot # [id number] Exp. 04/22/2026
[2021-07-14] MEDS: Senna/Docusate Sodium 1 Tablet PO (11:19)
[2021-07-15 00:50] VITALS: BP 102/62; PULSE 64; RESP 16; TEMP 36.7; O2SAT 96
[2021-07-15] MEDS: Ketorolac 30 MG/ML Syringe IV (04:24)
[2021-07-15] MEDS: Acetaminophen 500 MG Tablet 1000 MG PO ×4 (04:24→21:37)
[2021-07-15 04:35] VITALS: BP 93/60; PULSE 60; RESP 14; TEMP 36.2; O2SAT 96
[2021-07-15 04:54] LABS: Hematocrit 31.3 % (37-47); Hemoglobin 10.1 g/dL (12.0-15.0); Mean Corp Hgb Conc 32.3 g/dL (32-36); Mean Corpuscular Hgb 31.2 pg (27.0-32.0); Mean Corpuscular Volume 96.6 fL (81-99); Mean Platelet Vol. 11.9 fl (6.2-12.0); Platelet Count 155 K/mm3 (150-450); RBC Distribution Width CV 13.7 % (11.6-14.6); RBC Distribution Width SD 48.8 fl (35.1-43.9); Red Blood Count 3.24 M/mm3 (4.2-5.4); White Blood Count 10.1 K/mm3 (4.4-11.0)
--- NOTE | 2021-07-15 07:44 | PCM.PN.OB ---
Subjective Subjective Patient doing well without complaints. Tolerating PO. Ambulating and voiding without difficulty. Feeding well. Denies chest pain, shortness of breath, calf pain/swelling, fevers, chills, lightheadedness. Objective Data Objective Data Vital Signs: Vital Signs Temp Pulse Resp BP Pulse Ox 97.1 F L 60 14 93/60 96 07/15/21 04:35 07/15/21 04:35 07/15/21 04:35 07/15/21 04:35 07/15/21 04:35 Oxygen Delivery Method Room Air Weight: 214 lb 8.156 oz Body Mass Index (BMI) 32.5 Intake & Output: Intake and Output for Last 24 Hours 07/13/21 07/14/21 07/15/21 23:59 23:59 23:59 Intake Total 2306.5 / 2306.5 Output Total 1700 / 1700 600 / 600 Balance 606.5 / 606.5 -600 / -600 Lab / Micro Data Result Diagrams: 07/15/21 04:45 Labs: Laboratory Results - last 24 hr 07/14/21 15:00: Screen NEGATIVE, Baby's Blood Type A POSITIVE, Baby's MARY NEGATIVE 07/15/21 04:45: WBC 10.1, RBC 3.24 L, Hgb 10.1 L, Hct 31.3 L, MCV 96.6, MCH 31.2, MCHC 32.3 D, RDW Std Deviation 48.8 H, RDW Coeff of Nathanael 13.7, Plt Count 155, MPV 11.9 Micro: Microbiology 07/14/21 06:15 Nasal Secretion SARS-CoV-2 Antigen (Rapid) - Final Physical Exam Const alert and oriented x3 HEENT normocephalic Eyes PERRL Neck full ROM Resp normal respiratory effort GI soft to palpation GI Narrative: FF below U. Dressing dry and intact Palpation: tender other (appropriately) Assessment & Plan (1) S/P repeat low transverse : COMMENT: 07/14/21 SM Girl Arianna. with BS PLAN: s/p LTCS BS PPD # 1 1. routine post care 2. breast feeding- support given 3. rh negative 4. rubella immune
[2021-07-15 08:00] VITALS: BP 92/59; PULSE 62; RESP 16; TEMP 36.6; O2SAT 96
[2021-07-15] MEDS: Senna/Docusate Sodium 1 Tablet PO (09:19)
[2021-07-15 12:00] VITALS: BP 109/63; PULSE 71; RESP 18; TEMP 36.4; O2SAT 97
[2021-07-15] MEDS: Naproxen 500 MG Tablet PO ×2 (13:48→21:37)
[2021-07-15 15:04] LABS: Pathology Specimen OB SEE PATHOLOGY REPORT
[2021-07-15 21:45] VITALS: BP 105/55; PULSE 66; RESP 18; TEMP 36.4; O2SAT 98
[2021-07-16 01:47] VITALS: BP 102/52; PULSE 66; RESP 16; TEMP 36.4; O2SAT 98
[2021-07-16] MEDS: Acetaminophen 500 MG Tablet 1000 MG PO ×2 (04:47→10:03)
[2021-07-16] MEDS: Naproxen 500 MG Tablet PO ×2 (06:31→13:30)
[2021-07-16 10:00] VITALS: BP 117/63; PULSE 69; RESP 17; TEMP 36.3
[2021-07-16] MEDS: Senna/Docusate Sodium 1 Tablet PO (10:03)
--- NOTE | 2021-07-16 12:39 | PCM.DC ---
Discharge Instructions Diet Discharge Diet: No restrictions Activity Discharge Activity: May Not Drive (for 2 weeks or while taking narcotic pain medications.), May Shower and May Take a Tub Bath (in 7 days) May shower in (days): 0 May resume sexual activity in: 4-6 weeks Weight Bearing Status: Full weight bearing Lifting Restrictions: 20 pounds Dressing / Incision Call your doctor if your incision/area has: Continuous Slow Oozing, Sudden Increased Bleeding, Increased Pain/ Swelling, Increased Redness and Foul Smelling Discharge Call your doctor if you observe: Fever of 101 or Higher and Using more than 1 pad per hour (for 2 hours) Suture Line Care: Avoid Pulling/Pushing and Avoid Pinching/Bending Cleanse incision/area with: Soap & Water and Keep Dressing Clean & Dry Follow Up Care Please Follow Up With: Anna Billingsley MD When: Call [phone] to make an appointment for an incision check in 1-2 weeks. Test Results: Test results from this visit will be discussed in further detail at your follow-up appointment, if applicable. Discharge Plan Admission Admit Date/Time: 07/14/21 05:51 Primary Reason for Your Visit: c section Attending Provider: Anna Billingsley Primary Care Provider: Ramirez Post Discharge Orders/Prescriptions Prescriptions: New oxycodone-acetaminophen [Percocet] 5-325 mg tablet 1 tab PO Q6H PRN (Reason: pain) 7 Days Qty: 20 RF: 0 naproxen [naproxen] 500 MG tablet 500 mg PO BID PRN PRN (Reason: Pain) Qty: 30 RF: 1 Continued PNV 29-1 29 mg iron- 1 mg tablet 1 tab PO DAILY RF: 0 ferrous sulfate [iron] 325 mg (65 mg iron) Tablet 325 mg PO DAILY RF: 0 aspirin 81 mg Capsule 81 mg PO DAILY RF: 0 Referrals / Follow Up: Ramirez Post MD [Primary Care Provider] - Disposition Disposition (needs filled in before D/C Order can be placed): Home, Self Care
--- NOTE | 2021-07-16 12:43 | PCM.PN.OB ---
Subjective Subjective Patient doing well without complaints. Tolerating PO. Ambulating and voiding without difficulty. feeding well. Denies chest pain, shortness of breath, calf pain/swelling, fevers, chills, lightheadedness. Objective Data Objective Data Vital Signs: Vital Signs Temp Pulse Resp BP Pulse Ox 97.3 F L 69 17 117/63 98 07/16/21 10:00 07/16/21 10:00 07/16/21 10:00 07/16/21 10:00 07/16/21 01:47 Oxygen Delivery Method Room Air Weight: 214 lb 8.156 oz Body Mass Index (BMI) 32.5 Intake & Output: Intake and Output for Last 24 Hours 07/14/21 07/15/21 07/16/21 23:59 23:59 23:59 Intake Total 2306.5 / 2306.5 Output Total 1700 / 1700 600 / 600 Balance 606.5 / 606.5 -600 / -600 Lab / Micro Data Result Diagrams: 07/15/21 04:45 Micro: Microbiology 07/14/21 06:15 Nasal Secretion SARS-CoV-2 Antigen (Rapid) - Final ROS Constitutional Constitutional: Reports systems reviewed and no addt'l complaints, except as documented Cardiovascular Cardiovascular: Reports systems reviewed and no addt'l complaints, except as documented Respiratory/Chest Respiratory/Chest: Reports systems reviewed and no addt'l complaints, except as documented Gastrointestinal Gastrointestinal: Reports systems reviewed and no addt'l complaints, except as documented Physical Exam Const alert, oriented x3 and no apparent distress HEENT Head and Scalp: atraumatic Resp normal respiratory effort GI soft to palpation and non-tender Inspection: incision intact, healing well and drainage (none) Bimanual Exam - Vag & Uterus: uterus non-tender Uterus Palpation: uterus fundus firm (below Umbilicus) Assessment & Plan (1) S/P repeat low transverse : COMMENT: 07/14/21 SM Girl Arianna. with BS shirt PLAN: s/p LTCS PPD # 2 1. routine post care 2. breast feeding- support given 3. rh positive 4. rubella immune
--- NOTE | 2021-07-17 09:40 | NURSING ---
late entry: this RN has reviewed and agrees with all charting by SN Neli
== END 2021-07-16 13:55 | disposition home or self-care (01) | DRG 785 ==
PROVIDERS: Admitting Provider Obstetrics & Gynecology; PCP Family Medicine; Visit Provider Obstetrics & Gynecology
PROC: 10D00Z1 Extraction of Products of Conception, Low, Open Approach (ICD-10-PCS; CPT 59514; principal; 2021-07-14 07:15)
DX: O34.211 Maternal care for low transverse scar from previous cesarean delivery (principal); D64.9 Anemia, unspecified; O99.214 Obesity complicating childbirth; O99.02 Anemia complicating childbirth; O77.0 Labor and delivery complicated by meconium in amniotic fluid; O99.824 Streptococcus B carrier state complicating childbirth; O26.893 Other specified pregnancy related conditions, third trimester; Z67.11 Type A blood, Rh negative; Z37.0 Single live birth; Z3A.39 39 weeks gestation of pregnancy; Z79.82 Long term (current) use of aspirin; Z86.16 Personal history of COVID-19; Z87.59 Personal history of other complications of pregnancy, childbirth and the puerperium; Z30.2 Encounter for sterilization; Z84.81 Family history of carrier of genetic disease
CPT/HCPCS: 59050; 85025; 85027; 85461; 86850; 86900; 86901; 87426; 88302; 90384; 99218; 99251; J7120; A4216; G0378; G0463; J2790

== ENCOUNTER → 2023-10-11 | Outpatient (CLI) | payer OTHER, SELFPAY ==
[2023-10-18 15:07] LABS: HPV APTIMA, High Risk Negative (Negative)
== END | disposition home or self-care (01) ==
LOC: LABSPEC 16:27
PROVIDERS: Referring Provider Nurse Practitioner Women's Health; Visit Provider Nurse Practitioner Women's Health
DX: Z12.4 Encounter for screening for malignant neoplasm of cervix (principal)
CPT/HCPCS: 87624; 88175; G0145